=== PATIENT | female | born 1965 | race Two or more races ===

== ENCOUNTER 2023-07-24 09:25 | Emergency (ER) | payer OTHER ==
[~2023-07-24] VITALS: Ht 160 cm; Wt 62.6 kg
[2023-07-24] MEDS ORDERED: KETOROLAC TROMETHAMINE 60 MG VIAL IM STA (09:51)
[2023-07-24] MEDS ORDERED: DEXAMETHASONE SODIUM PHOSPHATE 4 MG/ML VIAL IM STA (09:52)
[2023-07-24] MEDS ORDERED: KETO10TA2 PO (11:04)
[2023-07-24] MEDS ORDERED: MEDROLPACK PO (11:04)
== END 2023-07-24 11:21 | disposition home or self-care (01) ==
LOC: ER 09:25
DX: S52.592A Other fractures of lower end of left radius, initial encounter for closed fracture (principal); W18.39XA Other fall on same level, initial encounter; Y93.69 Activity, other involving other sports and athletics played as a team or group; Y92.89 Other specified places as the place of occurrence of the external cause; Y99.9 Unspecified external cause status; Z88.0 Allergy status to penicillin